=== PATIENT | female | born 1955 | race Two or more races ===

== ENCOUNTER 2024-01-13 07:13 | Outpatient (CLI) | payer OTHER | END 2024-01-13 07:15 | disposition home or self-care (01) | LOC: NUCLEAR 07:13 | PROVIDERS: ATTEND Specialist | DX: I11.9 Hypertensive heart disease without heart failure (principal) | CPT/HCPCS: 78452; 93017; A9500 ==

== ENCOUNTER 2025-03-02 07:21 | Outpatient (CLI) | payer OTHER | END 2025-03-02 07:23 | disposition home or self-care (01) | LOC: TOM 07:21 | DX: K57.30 Diverticulosis of large intestine without perforation or abscess without bleeding (principal); R11.0 Nausea; K63.5 Polyp of colon ==